=== PATIENT | female | born 1950 | race Caucasian/White ===

== ENCOUNTER 2019-02-09 18:23 | Inpatient (IN) | payer MEDICARE ==
[~2019-02-09] VITALS: Ht 157.5 cm; Wt 58.2 kg
--- NOTE | 2019-02-09 21:29 | NUR ---
PT C/O GAS PAIN, SIMETHICONE ADMIN PO PER ORDERS.
[2019-02-09 21:46] VITALS: BP 143/80
[2019-02-09] MEDS ORDERED: CELEBREX200 MG PO (21:56)
[2019-02-09] MEDS ORDERED: LISINOPRIL40 MG PO (21:56)
[2019-02-09] MEDS ORDERED: CLARITIN 10 MG10 MG PO (21:57)
[2019-02-09] MEDS ORDERED: GLUCOPHAGE500 MG PO (21:58)
[2019-02-09] MEDS ORDERED: PRAVACHOL20 MG PO (21:58)
[2019-02-09] MEDS ORDERED: TYLENOL ARTHRI650 MG PO (21:59)
[2019-02-10 01:54] VITALS: BP 143/80; BMI 23.5
--- NOTE | 2019-02-10 02:38 | NUR ---
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
[2019-02-10 06:39] LABS: BASOPHILS 0.3 % (0-2); EOSINOPHILS 1.6 % (0-7); HEMATOCRIT 40.5 % (36.0-48.0); HEMOGLOBIN 13.9 g/dL (12-16); IMMATURE GRANULOCYTES 0.3 % (0-5); LYMPHOCYTES 32.2 % (15-50); MCH 29.6 pg (26.0-34.0); MCHC 34.3 g/dL (31.0-37.0); MCV 86.4 fL (80.0-100.0); MEAN PLATELET VOLUME 9.2 fL (7.4-10.4); MONOCYTES 12.3 % (2-11); NEUTROPHILS 53.3 % (40-80); PLATELET COUNT 250 10x3/uL (130-400); RBC 4.69 10x6/uL (4.00-5.40); WBC 7.1 10x3/uL (4.8-10.8)
[2019-02-10 07:17] LABS: ALBUMIN 3.8 g/dL (3.4-5.0); ALKALINE PHOSPHATASE 80 U/L (46-116); ALT (SGPT) 20 U/L (10-68); BILIRUBIN - TOTAL 0.62 mg/dL (0.2-1.3); CALC OSMOLALITY 279 mosm/kg (275-300); CALCIUM 9.4 mg/dL (8.5-10.1); CARBON DIOXIDE 31.8 mmol/L (21.0-32.0); CHLORIDE - SERUM 102 mmol/L (98-107); CHOL - HDL RATIO 1.8 ratio (2.3-4.1); CHOLESTEROL, TOTAL 137 mg/dL (0-200); CREATININE - SERUM 0.8 mg/dL (0.6-1.3); GLUCOSE 92 mg/dL (74-106); HDL CHOLESTEROL 75 mg/dL (32-96); LDL CHOLESTEROL 54 mg/dL (0-100); LDL-HDL RATIO 0.7 ratio (1.5-3.5); POTASSIUM - SERUM 4.3 mmol/L (3.5-5.1); PROTEIN - SERUM 7.3 g/dL (6.4-8.2); SODIUM 140 mmol/L (136-145); THYROID STIMULATING HORMONE 2.86 uIU/mL (0.36-3.74); TRIGLYCERIDE 44 mg/dL (30-200); UREA NITROGEN 15 mg/dL (7-18); eGFR NON AFRICAN AMERICAN 75 mL/min (90-120)
[2019-02-10 08:34] VITALS: BMI 23.4
--- NOTE | 2019-02-10 10:23 | NUR ---
PATIENT SITTING IN CHAIR IN DINING AREA AFTER SPEAKING WITH DR. LARA. NO ACUTE DISTRESS NOTED. DENIES ANY PAIN. RESP EVEN AND NONLABORED. PT IS ALERT AND ORIENTED. PT IS PLESANT WITH STAFF AND PEERS. DENIES SI. ANSWERS QUESTIONS WHEN ASKED. MEDICATION COMPLINAT. WILL CONT PLAN OF CARE.
[2019-02-10 11:40] VITALS: BP 134/88
--- NOTE | 2019-02-10 12:05 | NUR ---
SPOKE WITH DAUGHTER IN LAW. CORRECT CODE WORD GIVEN. SHE INQUIRED ABOUT PATIENTS NIGHT AND HOW WELL SHE ATE AND GETTING HER BETTER. THIS NURSE TOLD HER SHE SLEEP GOOD DURING THE NIGHT AND IS EATING DECENT AT MEALS. EXPLAINED MEDICATION ADJUSTMENTS CAN TAKE SOME TIME AND EXPLAINED THE LENGTH OF STAYS IN THE UNIT HERE AT THE HOSPITAL. SHE EXPRESSED SHE JUST WANTED HER TO EAT BETTER AND GET ON THE CORRECT MEDICATION. EXPLAINED THAT THE DOCTORS WOULD MAKE THE NECESSARY ADJUSTMENTS. SHE VERBALIZIED UNDERSTANDING. TOLD HER TO FEEL FREE TO CONTACT UNIT WITH ANY QUESTIONS IF NEEDED.
--- NOTE | 2019-02-10 17:19 | NUR ---
SON CALLED TO ASK ABOUT PATIENT CAREPLAN. NURSE EXPLAINED THE INFORMATION OBTAINED FROM THE DOCTOR NOTE. WHAT THE PLAN TO TREAT HER DEPRESSION, THINGS SHE CAN DO TO GET BETTER. EXPLAINED LENGTH OF STAY AND GENERAL PROGRESS OF THE PATIENT NURSE HAS SEEN DURING THIS SHIFT. PATIENT ATE 75% OF BREAKFAST AND 100% OF LUNCH. PT WAS REPORTED TO NOT BE EATING AT HOME. NURSE EXPLAINED STAFF AND DOCTORS WOULD MONITOR HER PROGRESS.
[2019-02-10 23:01] VITALS: BP 160/78
--- NOTE | 2019-02-11 01:20 | NUR ---
B) patient is alert and oriented to person, place and time, calm and pleasant, patient eat well at all meals, I) Administered scheduled medications as ordered, monitored for safety and for self care, R) Mediation compliant, pleasant and friendly toward staff, P) Continue danuta of care.
[2019-02-11 07:00] VITALS: BP 143/70
--- NOTE | 2019-02-11 12:21 | PSY ---
PATIENT NAME:HEMAL BRITO MEDICAL RECORD: [id number] : 48 LOCATION:[id number] ADMISSION DATE: 02/09/19 ACCOUNT: [id number] PSYCHIATRIC EVALUATION DATE OF EVALUATION: 02/10/19 IDENTIFYING DATA: The patient is 68 years old and she is admitted to the hospital on a voluntary basis. CHIEF COMPLAINT: Depression. HISTORY OF PRESENT ILLNESS: The patient comes to us from the Emergency Room at [facility]. Apparently, the patient had quit eating and has done so with the intention of killing herself by starvation. Her children brought her to the Emergency Room where she repeated her intent to and endorsed numerous neurovegetative depressive symptoms. Upon arrival here, she is back tracking and saying that she did quit eating. She has lost 20 pounds in 6 weeks and that the problem is she has new dentures, which she is having trouble adjusting to. Interestingly, after I spoke with her and finished my entire evaluation and went across the room and talked with the charge nurse and was about to leave the unit, she called me back and told me that this was not true and that she had stopped eating because she thought if she lost weight she would be pretty. Questioning her additionally about symptoms of an eating disorder, I do not find any. She has been in normal weight and has not had obsessive thoughts about food throughout her life. She is fully oriented, but I think she is of below normal intelligence and I will not detail that further down. PAST MEDICAL HISTORY: Significant for diabetes, hypercholesterolemia and hypertension. PAST PSYCHIATRIC HISTORY: Denied by the patient. FAMILY HISTORY: Significant for mental retardation. ALLERGIES: No known drug allergies. CURRENT MEDICATIONS: Include Claritin, Pravachol, Celebrex, Glucophage, and lisinopril. SOCIAL HISTORY: The patient is from [place]. As a young adult, she moved to [place]. She and had 5 children, 4 of whom are special needs. In questioning her about that, she indicates that they are apparently either mentally retarded or borderline intellectual in functioning and are on disability. 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 She denies a history of drug or alcohol abuse. Her some years ago. She moved in late life from [place] to [place] because one of her son is and lives here and she wanted to be closer to him. One of her other son with mental retardation is living with her and from the description he sounds as though he is fairly severely impaired. She has another mentally retarded son who lives here in a supervised intermediate. MENTAL STATUS EXAMINATION: The patient is awake, alert and oriented to person, place, time and situation. Her mood is depressed. Her affect is constricted. Thought processes are slowed, but generally goal directed. Her memory is mildly impaired. Concentration is mildly impaired and her abstraction abilities are concrete. She denies any active intent to harm herself or others. She denies overt psychotic symptoms. ASSETS: Supportive family members. LIABILITIES: Limited insight. DIAGNOSTIC IMPRESSION: AXIS I: Major depression, severe without psychotic features, single episode. 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 AXIS III: Hypertension, diabetes, hypercholesterolemia. AXIS IV: Moderate. AXIS V: Global assessment of functioning is 40. PLAN: At this time, the patient is admitted to the hospital for a comprehensive medical, psychological, and social evaluation. She will be treated with antidepressant medication. Her long-term prognosis is guarded. If the history is accurate, I do not believe she has an underlying eating disorder despite which she mentioned above. I do believe that she is well below normal intelligence and not suffering from a dementia. I think this low intelligence has been lifelong and obviously has been spread to 4 of her 5 children. There certainly needs to be an assessment of her home situation to ensure that she is being properly cared for. I suspect that she probably would test with an IQ in the 70s making her borderline intellectual in functioning, but at any point, it is difficult to say and I am going to carefully get history from collateral sources that will tell me about her ability to function independently. TRANSINT:[id number] Voice Confirmation ID: [id number] DOCUMENT ID: [id number] BETY LARA MD at 1221 CC: [id number] DICTATION DATE: 02/10/19 1025 CALENDER RUNNER: 02/10/19 1120 ADM IN [facility] [address] [place] [address]
--- NOTE | 2019-02-11 15:19 | NUR ---
PATIENT SITTING IN DAY AREA SOCIALIZING WITH PEERS. CALM AND COOPERATIVE WITH STAFF AND PEERS. MEDICATION COMPLIANT. NO ACUTE DISTRESS NOTED. PATIENT EAT WELL AT MEALS. NO BEHAVIORS NOTED AT THIS SHIFT. WILL CONT PLAN OF CARE.
--- NOTE | 2019-02-11 19:45 | NUR ---
RECEIVED IN DAYROOM. SITTING IN A CHAIR WITH PEERS AT HER SIDE. CALM AND COOPERATIVE WITH CARE AND ASSESSMENT. NO STATEMENTS OF SELF HARM MADE. ENCOURAGE TO EXPRESS NEEDS. CONTINUES TO SIT QUIETLY. CONTINUE PLAN OF CARE
[2019-02-11 20:08] VITALS: BP 127/63
[2019-02-12 07:00] VITALS: BP 143/71
--- NOTE | 2019-02-12 07:30 | NUR ---
REC'D PT IN HALLWAY SOCIALIZING WITH PEERS. PT IS AWAKE AND ALERT. PT DID ATTEMPT TO LEAVE UNIT THIS MORNING. PT WAS ATTEMPTING TO FOLLOW ANOTHER NURSE OUT THE NURSES STATION DOOR. PT WAS STOPPED AND EASILY REDIRECTED. PT EXPLAINS " I DIDN'T MEAN NAY HARM, I WAS TRYING TO SPEAK WITH THAT NURSE." CALM AND COOPERATIVE WITH ASSESSMENT. NO AGGRESSION NOTED. MED COMPLIANT. REDIRECT AND REORIENT NEEDED. FALL PRECAUTIONS IN PLACE. WILL CPOC.
--- NOTE | 2019-02-12 15:07 | PN ---
PATIENT:HEMAL BRITO MEDICAL RECORD: [id number] LOCATION:[facility] ADMISSION DATE: 02/09/19 PROGRESS NOTE DATE OF SERVICE: 02/11/2019 SUBJECTIVE: The patient's case was discussed with staff. She has no new complaint. OBJECTIVE: The patient is in good behavioral control with limited insight about her situation. She is tolerating her medicines well. ASSESSMENT: Major depression. PLAN: Current medicines have been reviewed. I am going to start her on Effexor for a depressed mood. TRANSINT:[id number] Voice Confirmation ID: [id number] DOCUMENT ID: [id number] BETY LARA MD at 1507 CC: [id number] DICTATION DATE: 02/11/19 1234 BANK WORKER: 02/11/19 1523 ADM IN [facility] [id number] [place] [address]
[2019-02-12 20:15] VITALS: BP 151/67
--- NOTE | 2019-02-12 22:01 | NUR ---
B.) Patient is alert and oriented to self and situation. She is pacing the dayroom and cleaning the dinning room. I.) Provided PM medications. R.) Compliant with all medications. P.) Continue Plan of Care.
[2019-02-13 06:09] LABS: RAPID PLASMA REAGIN Non Reactive (Non Reactive)
[2019-02-13 07:00] VITALS: BP 178/94
--- NOTE | 2019-02-13 14:54 | PN ---
PATIENT:HEMAL BRITO MEDICAL RECORD: [id number] LOCATION:[facility] ADMISSION DATE: 02/09/19 PROGRESS NOTE DATE OF SERVICE: 02/12/2019 SUBJECTIVE: The patient's case was discussed with staff. She has no new complaint. OBJECTIVE: The patient denies intent to harm herself or others. She is tolerating her medicines well. ASSESSMENT: No change in diagnoses. PLAN: The patient's Effexor will be increased to 75 mg twice daily. Effexor is being used to treat her depressed mood. Her long-term prognosis is guarded. TRANSINT:[id number] Voice Confirmation ID: [id number] DOCUMENT ID: [id number] BETY LARA MD at 1454 CC: [id number] DICTATION DATE: 02/12/192001 TAILINGS MAN: 02/12/19 2249 ADM IN [facility] [address] [place] [address]
--- NOTE | 2019-02-13 15:12 | NUR ---
PT IS AWAKE AND ALERT. CALM AND COOPERATIVE WITH ASSESSMENT. PT DENIES ANY SI AT THIS TIME. NO BEHAVIORS NOTED. PT IS EATING 100% AT MEALS. MED COMPLIANT. REDIRECT AND REORIENT NEEDED. FALL PRECAUTIONS IN PLACE. WILL CPOC.
[2019-02-13 15:19] VITALS: Ht 157.5 cm; Wt 58.2 kg
[2019-02-13] MEDS ORDERED: EFFEXOR37.5 MG PO (16:21)
[2019-02-13] MEDS ORDERED: VITAMIN D5000 UNIT PO (16:21)
--- NOTE | 2019-02-13 19:55 | NUR ---
RECEIVED IN HALLWAY. SITTING IN A CHAIR OUTSIDE OF NURSES STATION. CALM AND COOPERATIVE WITH CARE AND ASSESSMENT. ENCOURAGE TO EXPRESS NEEDS. CONTINUES TO SIT QUIETLY OUTSIDE OF NURSES STATION. CONTINUE PLAN OF CARE
[2019-02-13 20:00] VITALS: BP 162/93
--- NOTE | 2019-02-14 03:35 | NUR ---
CONSTANCE NOTE FROM 02/13. CONSTANCE SPOKE WITH PT'S LEANDRA BAGLEY. YUDI STATED SHE NEEDED TO TELL PT HER BROTHER IN LAW BUT DIDN'T WANT TO SET PT OFF. SHE REQUESTED SW TELL PT SINCE SHE COULDN'T MAKE IT IN DUE TO FLOODING. CONSTANCE DISCUSSED DISCHARGE PLANS SET FOR TUESDAY IF PT CONTINUES TO IMPROVE. LEANDRA STATED SHE WOULD RATHER FORMULATOR PT ON TUESDAY DUE TO APPOINTMENT CONFLICTS. SHE STATED IF THEY ARE NOT FLOODED IN THEY WILL FORMULATOR PT TOMORROW AFTERNOON AROUND 530-6PM. CONSTANCE STATED PT MAY BENEFIT FROM OUTPATIENT THERAPY IF SHE IS WILLING TO GO. YUDI STATED SHE WOULD SET UP AN APPOINTMENT AND GO THROUGH HER PCP TO GET A REFERRAL. CONSTANCE STATED PT WILL HAVE A THREE WEEK FOLLOW UP APPT WITH HER PCP AND MEDICATIONS WILL BE CALLED INTO [facility] IN [facility]. YUDI VOICED UNDERSTANDING. YUDI ASKED SW IF PT GETS WORSE AND DOESN'T TAKE CARE OF HERSELF IN THE HOME ENVIRONMENT COULD SHE LOOK INTO PLACING HER IN A FACILITY. CONSTANCE STATED IF SHE DECLINES IT APPROPRIATE TO LOOK AT DIFFERENT LEVELS OF CARE. CONSTANCE EDUCATED ON LEVELS OF CARE AND REPORTED PT HAS BEEN EATING 100% OF HER MEALS. YUDI VOICED UNDERSTANDING. CONSTANCE SPOKE TO THE PT AND DISCUSSED [place] . PT HANDLED INFORMATION AND PROCESSED IT WITH NORMAL EMOTIONS. PT WANTED TO SPEAK TO LEANDRA BAGLEY SO SW ALLOWED PHONE CALL IN OFFICE. PT WAS IN GOOD BEHAVIORAL CONTROL AFTER PHONE CALL AND STATED SHE WANTS TO LIVE AND DOESN'T WANT TO STARVE HERSELF.
[2019-02-14 09:39] VITALS: BP 144/78
--- NOTE | 2019-02-14 14:21 | NUR ---
RECEIVED PATIENT IN DINING ROOM FOR B'FAST, ALERT, CALM, COOPERATIVE. MEDS ADMIN PER ORDERS WITH COMPLETE MED COMPLIANCE NOTED. COOPERATIVE WITH STAFF AND GROUP ACTIVITY. CONT POC DIRECTED.
--- NOTE | 2019-02-14 15:16 | PN ---
PATIENT:HEMAL BRITO MEDICAL RECORD: [id number] LOCATION:[facility] ADMISSION DATE: 02/09/19 PROGRESS NOTE DATE OF SERVICE: 02/13/2019 SUBJECTIVE: The patient's case was discussed with staff. She has no new complaint. OBJECTIVE: The patient has a depressed mood, but no thoughts of harming herself or others. She continues to complain about her teeth and says they not allowing her to eat, but she ate 100% of all 3 meals again yesterday. ASSESSMENT: Major depression. PLAN: I think the patient has reached a level of improvement such that she no longer requires this care and assuming that continues over the next 12-18 hours, I plan to discharge her tomorrow. She certainly is still in need of treatment and should have follow up appointment with her primary care physician and the [facility]. I think her prognosis is good, if she continues in treatment. TRANSINT:[id number] Voice Confirmation ID: [id number] DOCUMENT ID: [id number] BETY LARA MD at 1516 CC: [id number] DICTATION DATE: 02/13/19 1623 STOCK DEALER: 02/13/19 1853 ADM IN [facility] [address] [place] [address]
--- NOTE | 2019-02-14 17:30 | NUR ---
PERSONAL BELONGINGS RETURNED TO PATIENT, PATIENT DISCHARGED FROM FACILITY IN C/O FAMILY. NO C/O PAIN OR S/S DISTRESS, PLEASANT MOOD, CHEERFUL. MEDS CALLED TO [facility] IN [place] EARLIER THIS SHIFT.
--- NOTE | 2019-02-15 13:45 | PN ---
PATIENT:HEMAL BRITO MEDICAL RECORD: [id number] LOCATION:[facility] ADMISSION DATE: 02/09/19 PROGRESS NOTE DATE OF SERVICE: 02/14/2019 SUBJECTIVE: The patient's case was discussed with staff. She has no new complaint. OBJECTIVE: The patient is in good behavioral control and has no evidence of acute or direct dangerousness. She is tolerating her medicines well. ASSESSMENT: Major depression. PLAN: The patient will be transitioned out of the hospital today. Her long-term prognosis is guarded. TRANSINT:[id number] Voice Confirmation ID: [id number] DOCUMENT ID: [id number] BETY LARA MD at 1345 CC: [id number] DICTATION DATE: 02/14/19 1540 WOOD MILLING MACHINE OPERATOR: 02/14/19 1831 DIS IN 02/14/19 [facility] [address] [place] [address]
== END 2019-02-14 17:30 | disposition home or self-care (01) | DRG 885 ==
LOC: D.PSYCH
PROVIDERS: ADMIT Psychiatry & Neurology Psychiatry; ATTEND Psychiatry & Neurology Psychiatry
DX: F32.2 Major depressive disorder, single episode, severe without psychotic features (principal); I10 Essential (primary) hypertension; E11.9 Type 2 diabetes mellitus without complications; E78.00 Pure hypercholesterolemia, unspecified; E78.5 Hyperlipidemia, unspecified; E55.9 Vitamin D deficiency, unspecified; M19.90 Unspecified osteoarthritis, unspecified site